=== PATIENT | female | born 1965 | race Caucasian/White ===

== ENCOUNTER → 2016-08-27 | Outpatient (CLI) | payer OTHER | LOC: BMCIMAGING 14:58 | PROVIDERS: ATTEND Internal Medicine | DX: M53.3 Sacrococcygeal disorders, not elsewhere classified (principal) ==

== ENCOUNTER → 2016-12-18 | Outpatient (CLI) | payer OTHER | LOC: CIMAGING 15:09 | PROVIDERS: ATTEND Obstetrics & Gynecology | DX: D25.2 Subserosal leiomyoma of uterus (principal) | CPT/HCPCS: 76856-PO ==

== ENCOUNTER → 2017-02-15 | Outpatient (CLI) | payer OTHER | LOC: FCPNEURO 22:58 | PROVIDERS: ATTEND Psychiatry & Neurology Sleep Medicine | DX: G47.33 Obstructive sleep apnea (adult) (pediatric) (principal); G47.61 Periodic limb movement disorder ==

== ENCOUNTER 2017-06-03 11:18 | Emergency (ER) | payer OTHER ==
[2017-06-03 11:22] VITALS: RESP 18; O2SAT 98
--- NOTE | 2017-06-03 11:45 | EDPHY ---
H & P Stated Complaint: accidentally put 2 T of rubbing alcohol in batch of pancakes - had 1 pancake Time Seen by Provider: 06/03/17 11:37 HPI/ROS: Chief Complaint: Accidental ingestion HPI: 51-year-old woman accidentally put 4 tbsp of rubbing alcohol inner pancake better this morning. She ate 1 pancake and noticed that it did not taste right. Has not had any other symptoms. She is concerned that she may have accidentally twice and herself. No nausea or vomiting. No abdominal pain. No other symptoms at this time. ROS: 10 point Review of Systems is negative except as noted in the HPI. PMH: Denies Social History: No smoking, no alcohol, no recreational drug use Family History: non-contributory Physical Exam: Gen: Awake, Alert, No Distress HEENT: Nose: no rhinorrhea Eyes: PERRLA, EOMI Mouth: Moist mucosa Neck: Supple, no JVD Chest: nontender, lungs clear to auscultation Heart: S1, S2 normal, no murmur Abd: Soft, non-tender, no guarding Back: no CVA tenderness, no midline tenderness Ext: no edema, non-tender Skin: no rash Neuro: CN II-XII intact, Sensation grossly intact, Strength 5/5 in bilateral upper and lower extremities - Personal History LMP (Females 10-55): 22-28 Days Ago Current Tetanus/Diphtheria Vaccine: Unsure Current Tetanus Diphtheria and Acellular Pertussis (TDAP): Unsure - Medical/Surgical History Hx Asthma: No Hx Chronic Respiratory Disease: No Hx Diabetes: No Hx Cardiac Disease: No Hx Renal Disease: No Hx Cirrhosis: No Hx Alcoholism: No Hx HIV/AIDS: No Hx Splenectomy or Spleen Trauma: No Other PMH: denies - Social History Smoking Status: Never smoked Constitutional: Initial Vital Signs Temperature (C) 37.0 C 06/03/17 11:18 Heart Rate 89 06/03/17 11:18 Respiratory Rate 18 06/03/17 11:18 Blood Pressure 138/103 H 06/03/17 11:18 O2 Sat (%) 98 06/03/17 11:18 O2 Delivery Mode Room Air Allergies/Adverse Reactions: No Known Allergies Allergy (Unverified 06/03/17 11:18) Home Medications: Medication Instructions Recorded NK [No Known Home Meds] 06/03/17 Departure - Departure Disposition: Home, Routine, Self-Care Clinical Impression: Accidental ingestion of substance Condition: Good Instructions: Normal Exam (ED) Additional Instructions: Return to the emergency department increasing nausea, vomiting, fevers, chills, abdominal pain, or any other concerns. Referrals: David Redmond MD [Primary Care Provider] - As per Instructions
[2017-06-03 11:54] VITALS: BP 137/82; PULSE 78; TEMP 98.1
== END 2017-06-03 11:55 | disposition home or self-care (01) ==
DX: T51.91XA Toxic effect of unspecified alcohol, accidental (unintentional), initial encounter (principal)

== ENCOUNTER → 2018-12-29 | Outpatient (CLI) | payer OTHER, BC | LOC: FCPNEURO 23:00 ==